=== PATIENT | male | born 1960 ===

== ENCOUNTER 2016-09-23 16:29 | Emergency (ER) | payer BC ==
[2016-09-23] MEDS ORDERED: Tetan/Diph/Pertus SYR(Tdap)* 0.5 ML SYR(BOOSTRIX) use SYR IM ONE ×2 (18:17→21:34)
[2016-09-23] MEDS ORDERED: ceFAZolin 1 GM in Dextrose (*) 1 GM/50 ML BAG IVPB ONE (18:17)
--- NOTE | 2016-09-23 18:19 | ED ---
[place] Karl, scribed for Kelly Ibarra MD on 09/23/16 at 1738 . Laceration/Wound HPI - HPI Summary HPI Summary: 55 y/o M presents through amb triage. Pt c/o a laceration to his left thumb that he sustained at approx 15:00 today. Pt reported that he cut his thumb on a trailer hitch and his pain is at a 4/10 currently. Movement aggravates the pain. Pt normally takes 81 mg ASA but he did not take any yet today. No analgesia taken. Unknown last tdap. No parenthesis. Did not cleanse prior to presentation. Bleeding controlled. No weakness to finger. RHD. No previous injury to same. Not immunocompromised - History of Current Complaint Stated Complaint: THUMB LAC Time Seen by Provider: 09/23/16 17:34 Hx Obtained From: Patient Onset/Duration: Sudden Onset, Lasting Hours, Still Present Aggravating: Movement Alleviating: Nothing Onset Severity: Moderate Current Severity: Moderate Pain Intensity: 5 - left thumb Pain Scale Used: 0-10 Numeric Associated Signs & Symptoms: Pain Related Hx: Dominant Hand (Right), Recent Trauma - Allergy/Home Medications Allergies/Adverse Reactions: Allergies Allergy/AdvReac Type Severity Reaction Status Date / Time No Known Allergies Allergy Verified 08/08/15 11:57 PMH/Surg Hx/FS Hx/Imm Hx Previously Healthy: Yes Endocrine/Hematology History: Reports: Hx Anticoagulant Therapy - ASA QD Denies: Hx Diabetes Cardiovascular History: Reports: Hx Angina, Hx Hypercholesterolemia Denies: Hx Coronary Artery Disease, Hx Hypertension, Hx Myocardial Infarction , Hx Valvular Heart Disease Respiratory History: Denies: Hx Asthma, Hx Chronic Obstructive Pulmonary Disease (COPD) Sensory History: Reports: Hx Contacts or Glasses, Hx Hearing Aid Opthamlomology History: Reports: Hx Contacts or Glasses - Surgical History Surgery Procedure, Year, and Place: gall bladder and appy Hx Anesthesia Reactions: No Infectious Disease History: No Infectious Disease History: Denies: Traveled Outside the [place] in Last 30 Days - Family History Known Family History: Negative: Cardiac Disease, Hypertension, Diabetes - Social History Occupation: Employed Full-time - mechanical engineering intern Alcohol Use: Weekly Hx Substance Use: No Substance Use Type: Reports: None Hx Tobacco Use: Yes Smoking Status (MU): Former Smoker Type: Cigarettes Have You Smoked in the Last Year: No Review of Systems Constitutional: Negative Eyes: Negative ENT: Negative Cardiovascular: Negative Respiratory: Negative Gastrointestinal: Negative Genitourinary: Negative Musculoskeletal: Negative Skin: Other - laceration left thumb Neurological: Negative Psychological: Normal All Other Systems Reviewed And Are Negative: Yes Physical Exam Triage Information Reviewed: Yes Vital Signs On Initial Exam: Initial Vitals Temp Pulse Resp BP Pulse Ox 97.4 F 98 18 126/62 99 09/23/16 16:46 09/23/16 16:46 09/23/16 16:46 09/23/16 16:46 09/23/16 16:46 Vital Signs Reviewed: Yes Appearance: Positive: Well-Appearing, Pain Distress - mild discomfort left thumb Skin: Positive: Other - Pt with 5cm laceration from distal thenar eminence to prox phalynx on lateral edge of left tumb. Wound open 1cm entire length. visible tendon. No active bleeding. no nail involvment pad of left tumb 1 cm linear - no active bleeding Head/Face: Positive: Normal Head/Face Inspection Eyes: Positive: Normal ENT: Positive: Normal ENT inspection Neck: Positive: Supple Respiratory/Lung Sounds: Negative: Unable to speak in full sentences Cardiovascular: Positive: Other - 2+ radial, 2+ ulnar CBT crisp throughout tip of left thumb Musculoskeletal: Positive: Other - + flex/ext mcp, pip against resistance + opponsition, abduction left tumb Neurological: Positive: Normal - Full gross sensation throughout left tumb - tip , dorsal and volar surface of digit Psychiatric: Positive: Normal AVPU Assessment: Alert - Fatou Coma Scale Best Eye Response: 4 - Spontaneous Best Motor Response: 6 - Obeys Commands Best Verbal Response: 5 - Oriented Procedures - Splinting Hand-Made Type: vasoline gauze, 4x4 and web roll padding - not full extension of thumb given tension on sutures loose at thumb for edema pt tolerated well good cap refill s/p splint Splint: thumb spica Pre-Proc Neuro Vasc Exam: normal Post-Proc Neuro Vasc Exam: normal - Laceration/Wound Repair 1 Location: upper extremity - left thumb - distal thenar eminence to distal phalynx lateral aspect Description: Linear Anesthesia: Local - 1ml distal dorsal margin, Digital - 4ml , 1.0%, Lido Length, Depth and Shape: linear 5cm - large wound gap second to edema Betadine Prep?: No Irrigated w/ Saline (ccs): 1,000 - copious under pressure. Wound evaluated through full ROM - easy visualization of tendon. Tendon intact wtih laceration throughout visualized length Laceration/Wound Explored: clean, no foreign body removed Closure: Multilayer - 5 subcutaneous for tension and approximation Debridement: minimal Suture Type: Prolene - 4-0, Other - gut 4-0 Number of Sutures: 23 - 5 deep gut, 18 prolene Layer Closure?: Yes Sterile Dressing Applied?: Yes - vasoline gauze, 4x4, padding, tumb spica 2 Location: upper extremity - left thumb pad Description: Linear Anesthesia: Digital Length, Depth and Shape: 1cm Irrigated w/ Saline (ccs): 100 Laceration/Wound Explored: clean, no foreign body removed Closure: Single Layer Debridement: minimal Suture Type: Prolene - 4-0 Number of Sutures: 2 Layer Closure?: No Sterile Dressing Applied?: Yes Diagnostics - Vital Signs Vital Signs Temp Pulse Resp BP Pulse Ox 09/23/16 17:00 94 118/79 95 09/23/16 16:55 95 95 09/23/16 16:54 123/76 09/23/16 16:46 97.4 F 98 18 126/62 99 - Laboratory Lab Statement: Any lab studies that have been ordered have been reviewed, and results considered in the medical decision making process. - Radiology XR Left Thumb Xray Interpretation: Positive (See Comments) Radiology Interpretation Completed By: Radiologist - IMPRESSION: 1. OSTEOARTHRITIS. 2. MINIMAL HIGH ATTENUATION MATERIAL ALONG THE PROXIMAL FIRST PHALANX NEAR THE INTERPHALANGEAL JOINT DORSALLY. GIVEN THE HISTORY OF LACERATION , THIS MAY REPRESENT FRAGMENTATION FROM A NONDISPLACED FRACTURE.. XR Left Hand Xray Interpretation: Positive (See Comments) Radiology Interpretation Completed By: Radiologist Laceration Repair Course/Dx - Course Assessment/Plan: Pt with large, open laceration nondominant thumb. CSM intact. Will give ancef, tdap. Will place digital block, wound irrigation, evaluate with visualization of tendon. close, repair. thumb spica. augmentin. orthop f/u - Clinical Impression Provider Diagnoses: Laceration of thumb - Physician Notifications Discussed Care Of Patient With: Dr. Pettit - agree with plan of closure, ancef, tdap, augmentin, toumb spica with loose around thumb - call for f/u with Dr. Aniceto Mcconnellday - call with any questions during weekend Time Discussed With Above Provider: 19:30 Discharge - Discharge Plan Condition: Improved Disposition: HOME Prescriptions: Amoxicillin/Clavulanate TAB* [Augmentin TAB 875*] 875 mg PO BID #20 tab HYDROcodone/ACETAMIN 5-325 MG* [[place] 5-325 TAB*] 1 - 2 tab PO Q6H PRN #30 tab MDD 8 PRN Reason: Severe Pain Patient Education Materials: Laceration (ED) Forms: *Work Release Referrals: Rhett Velasco MD [Primary Care Provider] - Sultana Moreland MD [Medical Doctor] - Additional Instructions: - Keep splint and bandage in place until you are seen by the hand surgeon on Sunday - Contact the hand surgeon on Sunday to schedule a follow-up to be seen on Sunday - make sure they know you were seen in the ED and instructed to call for follow-up. [phone]. If you have ANY questions or concerns, call the office. The on-call doctor will call you back - Keep your arm elevated above the level of your heart. This will help with swelling and pain - Okay to alternate ibuprofen (advil, motrin) 600mg and Tylenol product ( Tylenol OR [place]-prescription) every 3 hours for pain. [place] contains a narcotic. do NOT drive, operate machinery or drink alcohol while taking this medication. It also may cause constipation - Contact the orthopedic doctor or return with any questions or concerns The documentation as recorded by the [place] Karl accurately reflects the service I personally performed and the decisions made by me, Kelly Ibarra MD.
--- NOTE | 2016-09-23 19:21 | RAD ---
HISTORY: Laceration to left thumb COMPARISONS: None VIEWS: 5, frontal and lateral views of the left hand with frontal, lateral, and oblique views of the first digit of the left hand FINDINGS: BONE DENSITY: Normal. BONES: There is minimal high attenuation material along the proximal phalanx of the first digit at the interphalangeal joint JOINTS: There is mild osteoarthritis of the interphalangeal joint, first CMC, first MCP joints. ALIGNMENT: There is no dislocation. SOFT TISSUES: There is soft tissue irregularity consistent with the history of laceration OTHER FINDINGS: None. IMPRESSION: 1. OSTEOARTHRITIS. 2. MINIMAL HIGH ATTENUATION MATERIAL ALONG THE PROXIMAL FIRST PHALANX NEAR THE INTERPHALANGEAL JOINT DORSALLY. GIVEN THE HISTORY OF LACERATION, THIS MAY REPRESENT FRAGMENTATION FROM A NONDISPLACED FRACTURE..
[2016-09-23] MEDS ORDERED: HYDROcodone/ACETAMIN 5-325 MG* 1 TAB PO ONE (20:49)
[2016-09-23] MEDS ORDERED: Amoxicillin/Clavulanate TAB* 875 MG PO ONE (20:50)
[2016-09-23] MEDS: HYDROcodone/ACETAMIN 5-325 MG* 1 TAB PO ONE ×3 (21:17→21:36)
[2016-09-23 21:31] VITALS: BP 122/82
== END 2016-09-23 21:31 | disposition home or self-care (01) ==
LOC: ED 16:29
DX: S61.012A Laceration without foreign body of left thumb without damage to nail, initial encounter (principal); M19.042 Primary osteoarthritis, left hand; W45.8XXA Other foreign body or object entering through skin, initial encounter; Y93.9 Activity, unspecified; Y92.9 Unspecified place or not applicable; Y99.9 Unspecified external cause status; Z87.891 Personal history of nicotine dependence
CPT/HCPCS: 12002; 90471; 90715; 99283; A9270-GY; J0690